=== PATIENT | female | born 1945 | race Caucasian/White ===

== ENCOUNTER → 2018-11-25 | Outpatient (CLI) | payer OTHER | END | disposition home or self-care (01) | LOC: SHCH 11:02 | PROVIDERS: ATTEND Internal Medicine Cardiovascular Disease | DX: I08.2 Rheumatic disorders of both aortic and tricuspid valves (principal); R06.02 Shortness of breath | CPT/HCPCS: 93306 ==

== ENCOUNTER 2021-05-09 14:21 | Observation (INO) | payer OTHER ==
[~2021-05-09] VITALS: Ht 160 cm; Wt 71.9 kg
[2021-05-09 15:21] LABS: BASOPHILS % (AUTO) 0.6 % (0.0-5.0); EOSINOPHILS % (AUTO) 2.6 % (0.0-8.0); HEMATOCRIT 39.6 % (36-48); LYMPHOCYTES % (AUTO) 23.4 % (21.0-51.0); MEAN CORPUSCULAR HEMOGLOBIN 30.8 pg (27.0-33.0); MEAN CORPUSCULAR HGB CONC 32.6 g/dL (32.0-36.0); MEAN CORPUSCULAR VOLUME 94.5 fL (79-99); MONOCYTES % (AUTO) 9.1 % (3.0-13.0); PLATELET COUNT (AUTO) 209 K/uL (130-400); RED BLOOD CELL COUNT(AUTO) 4.19 MIL/uL (4.00-5.50); RED CELL DISTRIBUTION WIDTH 12.7 % (11.0-15.5); WHITE BLOOD COUNT (AUTO) 6.9 K/uL (4.8-10.8)
[2021-05-09 15:37] LABS: INR 0.95 (0.85-1.15); PROTHROMBIN TIME 10.4 SEC (9.6-11.6)
[2021-05-09 15:39] LABS: PARTIAL THROMBOPLASTIN TIME 24.5 SEC (26.3-35.5)
[2021-05-09 15:43] LABS: B-TYPE NATRIURETIC PEPTIDE 29 pg/mL (0-100)
[2021-05-09 15:58] LABS: CREATININE 0.9 mg/dL (0.5-1.5); MAGNESIUM 2.2 mg/dL (1.80-2.40); POTASSIUM 3.7 mmol/L (3.5-5.1)
[2021-05-09] MEDS ORDERED: GLUCAGON 1MG KIT 1 MG ML IM PRN (16:00)
[2021-05-09] MEDS ORDERED: KCL 20 MEQ ERTAB PO PRN (16:00)
[2021-05-09] MEDS ORDERED: POTASSIUM CHLORIDE 20MEQ/100ML 100 ML IV PRN (16:00)
[2021-05-09] MEDS ORDERED: POTASSIUM CHLORIDE 10% ELIXIR 20 MEQ/15 ML UDCUP PO PRN (16:00)
[2021-05-09] MEDS ORDERED: DEXTROSE 50%-WATER 50 ML DISP.SYRIN IV PRN (16:00)
[2021-05-09] MEDS ORDERED: LIDOCAINE HCL-MPF 1% 2ML VIAL IJ PRN (16:00)
[2021-05-09] MEDS: INSULIN R PO SS1 SQ SCH ×2 (16:19→21:00)
[2021-05-09] MEDS ORDERED: STIOLTO IH (16:58)
[2021-05-09] MEDS ORDERED: ROSU20TA31 PO (16:58)
[2021-05-09] MEDS ORDERED: FLUT16H NASAL (16:58)
[2021-05-09] MEDS ORDERED: FURO20TA4 PO (16:58)
[2021-05-09] MEDS ORDERED: ALBU90AE2 IH (16:58)
[2021-05-09] MEDS ORDERED: MONT10TA21 PO (16:58)
[2021-05-09] MEDS ORDERED: EZET10TA48 PO (16:58)
[2021-05-09] MEDS ORDERED: DILT120T PO (16:58)
[2021-05-09] MEDS ORDERED: DiphenhydrAMINE HCL 50 MG/ML VIAL IV PRN (17:30)
[2021-05-09] MEDS ORDERED: ONDANSETRON 4MG INJ IV PRN (17:30)
[2021-05-09] MEDS ORDERED: 0.9%NACL 1000ML 1,000 ML IV SCH (17:30)
[2021-05-09] MEDS ORDERED: ACETAMINOPHEN 325 MG TAB PO PRN ×2 (17:30)
[2021-05-09] MEDS: FAMOTIDINE 20MG VIAL IV SCH (18:14)
[2021-05-09] MEDS: ATORVASTATIN 40 MG TABLET PO SCH (21:05)
[2021-05-09 22:40] VITALS: BP 143/72
[2021-05-10] VITALS (13 sets, daily range): BP systolic 110–162; BP diastolic 61–90
[2021-05-10 05:40] LABS: HEMATOCRIT 36.3 % (36-48); MEAN CORPUSCULAR HEMOGLOBIN 30.7 pg (27.0-33.0); MEAN CORPUSCULAR HGB CONC 32.8 g/dL (32.0-36.0); MEAN CORPUSCULAR VOLUME 93.6 fL (79-99); RED BLOOD CELL COUNT(AUTO) 3.88 MIL/uL (4.00-5.50); RED CELL DISTRIBUTION WIDTH 12.6 % (11.0-15.5)
[2021-05-10 05:59] LABS: ALBUMIN 3.2 g/dL (3.5-5.0); BILIRUBIN,TOTAL 0.4 mg/dL (0.2-1.0); CREATININE 0.7 mg/dL (0.5-1.5); POTASSIUM 3.9 mmol/L (3.5-5.1); TOTAL PROTEIN, SERUM 6.2 g/dL (6.0-8.3)
[2021-05-10] MEDS: INSULIN R PO SS1 SQ SCH ×4 (06:32→21:00)
[2021-05-10] MEDS: FAMOTIDINE 20MG VIAL IV SCH (08:23)
[2021-05-10] MEDS: DILTIAZEM 120MG SR CAP PO SCH (08:23)
[2021-05-10] MEDS ORDERED: NITROGLYCERIN 50MG VIAL IV ONE (12:04)
[2021-05-10] MEDS ORDERED: IOHEXOL-350 50ML VIAL IV ONE (12:05)
[2021-05-10] MEDS ORDERED: LIDOCAINE HCL 400MG/20ML VIAL ONE (12:05)
[2021-05-10] MEDS ORDERED: SODIUM BICARB 50MEQ 50ML VIAL 50 ML ONE (12:05)
[2021-05-10] MEDS ORDERED: IOHEXOL 350 MG/ML 100ML INFUS..BTL IV ONE (12:05)
[2021-05-10] MEDS ORDERED: NICARDIPINE 25MG INJ IV ONE (14:46)
[2021-05-10] MEDS ORDERED: HEPARIN 10,000 UNIT/10ML (1,000 UNIT/ML) VIAL ONE (14:54)
[2021-05-10] MEDS ORDERED: MIDAZOLAM HCL 1 MG/ML 2ML VIAL ONE (14:54)
[2021-05-10] MEDS ORDERED: FENTANYL CITRATE PF 50 MCG/1 ML 2ML VIAL ONE (15:03)
[2021-05-10] MEDS ORDERED: 0.9%NACL 1000ML 1,000 ML IV SCH (16:30)
[2021-05-10] MEDS: ATORVASTATIN 40 MG TABLET PO SCH (20:18)
[2021-05-11 04:00] VITALS: BP 138/75
[2021-05-11] MEDS: INSULIN R PO SS1 SQ SCH (07:17)
[2021-05-11 08:00] VITALS: BP_SYST 138; BP_SYST 142; BP_DIAS 65; BP_DIAS 76
[2021-05-11] MEDS: DILTIAZEM 120MG SR CAP PO SCH (08:49)
[2021-05-11] MEDS: FAMOTIDINE 20MG VIAL IV SCH (08:52)
== END 2021-05-11 11:00 | disposition home or self-care (01) ==
LOC: EDH 14:21 → INTOOBSV 14:22 → EDHIP 14:22 → 4DH 22:14
PROVIDERS: ADMIT Internal Medicine; ATTEND Internal Medicine
DX: I47.2 Ventricular tachycardia (principal); J44.9 Chronic obstructive pulmonary disease, unspecified; E78.5 Hyperlipidemia, unspecified; E78.1 Pure hyperglyceridemia; Z90.710 Acquired absence of both cervix and uterus; Z85.819 Personal history of malignant neoplasm of unspecified site of lip, oral cavity, and pharynx; Z79.4 Long term (current) use of insulin; Z79.899 Other long term (current) drug therapy
CPT/HCPCS: 36415 ×2; 71045; 80048; 80053; 82948 ×6; 83735; 83880; 85025; 85027; 85610; 85730; 93306; 93458; 96374; 96376 ×2; C1769 ×2; C1887; C1894; G0378; J1644 ×2; J2250; J3010; J3490 ×7; J7030; Q9965; Q9967 ×2; 99156; 99157